=== PATIENT | male | born 1985 | race Caucasian/White ===

== ENCOUNTER 2024-02-20 10:12 | Emergency (ER) | payer BC, SELFPAY ==
[2024-02-20 10:34] VITALS: BP 154/80; PULSE 83; RESP 16; TEMP 36.8; O2SAT 97
--- NOTE | 2024-02-20 10:40 | ED_ITS ---
HPI - URI/Sore Throat General Chief Complaint: Upper Respiratory Infection Stated Complaint: congestion/cough Time Seen by Provider: 02/20/24 10:40 Source: patient Mode of arrival: ambulatory Limitations: no limitations History of Present Illness HPI Narrative: 38-year-old male presents with complaint of nasal and chest congestion for the past 2-3 weeks. worsening of symptoms with body aches, chills, fever the past 2-3 days. Coughing for approximately 1 week. Started DayQuil NyQuil recently due to worsening of symptoms. Does not take any daily allergy medications. Denies nausea vomiting diarrhea. Patient's positive for influenza A. All systems reviewed and negative except as noted above. Related Data Home Medications ?Medication ?Instructions ?Recorded ?Confirmed ?Last Taken ?Type cholecalciferol (vitamin D3) 25 25 mcg PO DAILY 09/08/22 11/28/23 Unknown History mcg (1,000 unit) capsule testosterone cypionate 200 mg/mL 80 mg IM .Mon & Thurs 11/21/22 11/28/23 Unknown History intramuscular oil mecobalamin (vitamin B12) 1,000 1,000 mcg PO DAILY 02/20/24 Unknown History mcg chewable tablet semaglutide 0.25 mg or 0.5 mg (2 0.25 mg subcut ONCE 02/20/24 02/20/24 Unknown History mg/3 mL) subcutaneous pen injector (Ozempic) Allergies Allergy/AdvReac Type Severity Reaction Status Date / Time No Known Allergies Allergy Verified 02/20/24 10:33 Review of Systems Review of Systems: CONSTITUTIONAL: reports fatigue, fever, chills, or sweats. EYES: Denies visual changes, redness, or discharge. ENT: Reports rhinorrhea, congestion, sinus congestion, sinus pressure. Denies sore throat, or otalgia. CARDIOVASCULAR: Denies chest pain, palpitations, or edema. RESPIRATORY: reports cough, chest congestion. Denies dyspnea. GASTROINTESTINAL: Denies abdominal pain, nausea, vomiting, or diarrhea. GENITOURINARY: Denies dysuria or hematuria. SKIN: Denies rash or itching. MUSCULOSKELETAL: Denies back pain, joint pain. Reports myalgia. NEUROLOGIC: Denies headache, numbness, or weakness. PSYCHIATRIC: Denies anxiety or depression. All other systems reviewed are negative, except as documented in HPI. 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 Father Hypertension Diabetes mellitus Grandparent Diabetes mellitus Social History Social History Smoking status: Never smoker Smokeless tobacco user: chewing tobacco Drinks per week: 20 Alcohol use details: beer Substance use: never Substance use type: does not use Lack of Transportation: No Lack of Food: Never True Current Housing: I Have Housing Concerned About Future Housing: No Difficulty Paying Gas/Electric Bills: No Difficulty Paying for Meds: No Currently Unemployed: No Education: Associate Degree Difficulty w/ Childcare or Family Care: No Living arrangements: with family Occupation/Education: occupation Gender identity (if verbalized by the patient): Male Comments At time of signature, agree with nursing past medical, surgical, social and family history. There is no relevant family history pertinent to the presenting complaint. Exam Narrative: GENERAL: This is a well-nourished, well-developed patient, in no apparent distress. HEAD: normocephalic, atraumatic. EYES: PERRL. Sclera clear/white. Vision is grossly intact. EARS: External ears normal, auditory canals clear and without drainage, TMs normal without perforation. Hearing grossly intact. NOSE: External nose normal with mild congestion, erythema and swelling to bilateral nares, purulent nasal drainage. Maxillary sinus tenderness on palpation bilaterally. THROAT: Mucous membranes moist, Erythematous with swelling. No exudates. Postnasal drainage noted. NECK: Neck supple, non-tender without lymphadenopathy, masses or thyromegaly. CARDIOVASCULAR: Regular rate and rhythm without murmurs, gallops, or rubs. RESPIRATORY: Course on expiration to lower lung de jesus otherwise clear. Breath sounds equal bilaterally. No wheezes, rales, or rhonchi. SKIN: warm, Dry, intact with no suspicious lesions or rash, good texture and turgor. NEURO: awake, alert, and oriented to person, place and time. There were no obvious focal neurologic abnormalities. EXTREMITIES: No joint tenderness, effusion, or edema noted. Course Course Level of Care: Express Care Visit Vital Signs Vital signs: Vital Signs Temperature 36.8 C 02/20/24 10:34 Pulse Rate 83 02/20/24 10:34 Respiratory Rate 16 02/20/24 10:34 Blood Pressure 154/80 H 02/20/24 10:34 Pulse Oximetry 97 02/20/24 10:34 Oxygen Delivery Room Air 02/20/24 10:34 Temperature 36.8 C 02/20/24 10:34 Pulse Rate 83 02/20/24 10:34 Respiratory Rate 16 02/20/24 10:34 Blood Pressure 154/80 H 02/20/24 10:34 Pulse Oximetry 97 02/20/24 10:34 Oxygen Delivery Room Air 02/20/24 10:34 Reviewed MDM - URI/Sore Throat MDM Narrative Medical decision making narrative: Patient is aware of diagnosis, understands and agrees to treatment plan. Anticipatory guidance given. Patient agrees to follow-up as directed and is aware of reasons to seek care at the emergency department. Portions of this record may have been created with voice recognition software negative influenza and COVID test. Will treat patient for bacterial sinusitis due to duration of symptoms and exam findings. Differential Diagnosis Differential diagnosis: Likely upper respiratory infection, sinusitis, viral infection, influenza and pharyngitis Discharge Plan Discharge Clinical Impression: Acute bacterial sinusitis Patient Disposition: Home, Self-Care Condition: Stable Instructions: Antibiotic Form, Sinusitis (ED) Additional Instructions: your COVID and influenza test was negative today. Take medications as prescribed. Take Tylenol or ibuprofen every 6-8 hours as needed for pain and fever. Drink at least 64 oz of water a day. Place cool mist humidifier in bedroom where you sleep. Follow-up with your primary care physician if symptoms are not improving. Patient Language: Hebrew Prescriptions: New doxycycline hyclate 100 mg capsule 100 mg PO BID 7 Days Qty: 14 0RF benzonatate 200 mg capsule 200 mg PO TID PRN (Reason: cough) Qty: 20 0RF prednisone 20 mg tablet 40 mg PO DAILY 5 Days Qty: 10 0RF fluticasone propionate [Flonase Allergy Relief] 50 mcg/actuation spray,suspension 1 spray intranasal BID Qty: 16 0RF Rx Instructions: administer into each nostril loratadine [Allerclear] 10 mg tablet 10 mg PO DAILY Qty: 30 0RF No Action Ozempic 0.25 mg or 0.5 mg (2 mg/3 mL) pen injector 0.25 mg subcut ONCE mecobalamin (vitamin B12) 1,000 mcg tablet,chewable 1,000 mcg PO DAILY cholecalciferol (vitamin D3) 25 mcg (1,000 unit) capsule 25 mcg PO DAILY testosterone cypionate 200 mg/mL oil 80 mg IM .Mon & Thurs olmesartan [Benicar] 20 mg tablet 20 mg PO DAILY Qty: 90 0RF levothyroxine 112 mcg tablet 112 mcg PO DAILY Qty: 90 0RF Follow-up/Referrals: Marcella Carranza PA-C [Primary Care Provider] - Time of Disposition: 11:00
[2024-02-20 11:05] LABS: EDINFLUASCREEN Negative (Negative); EDINFLUBSCREEN Negative (Negative)
--- OUTSIDE RECORDS SUMMARY | 2024-02-27 20:31 | XMS_ITS | Encounter Summary ---
Author Organization [facility] Address [address] [place] [address] Care Team Providers Care Digital Production Artist Name Role Phone Saurabh Marquis MD Primary Care Provider [phone] Encounter Details Date Type Department Care Team (Latest Contact Info) Description 07/17/2014 Hospital Outpatient Visit [facility] - Orthopedics [address] [place] [address] Miah Dumont MD [address] [place] [address] Discharge Disposition: Home or Self Care Social History Tobacco Use Types Packs/Day Years Used Date Smoking Tobacco: Never Assessed Sex and Gender Information Value Date Recorded Sex Assigned at Not on file Gender Identity Not on file Sexual Orientation Not on file documented as of this encounter Plan of Treatment Not on file documented as of this encounter Visit Diagnoses Not on filedocumented in this encounter Care Teams Digital Production Artist Relationship Specialty Start Date End Date Saurabh Marquis MD [address] [place] [id number] PCP - General Internal Medicine 06/05/14 documented as of this encounter
--- OUTSIDE RECORDS SUMMARY | 2024-02-27 20:31 | XMS_ITS | Clinical Summary ---
Author Organization [facility] Address [address] [facility] [place] [address] Care Team Providers Care Hardware Trainer Name Role Phone Saurabh Marquis MD Primary Care Provider [phone] [facility],non-owned Affiliates and Associated Physician Practices is amultiple site organization consisting of ambulatory clinics and hospital sitesin [place], [place], [place] and [place]. This disclosure is being madepursuant to the Care Everywhere program and may not contain all information available regarding this patient. Last updated 17.[facility] Allergies No known active allergies Medications * Be aware that medications may not be up to date on this document. Alwaysverify current medications with the patient. Medication Sig Dispensed Refills Start Date End Date Status ibuprofen (MOTRIN) 200 MG tablet Take by mouth every 6 hours as needed for Pain. Active benzonatate (TESSALON) 200 MG capsuleIndications:Acu te nasopharyngitis (common cold) Take 1 capsule by mouth 3 times daily as needed for Cough 30 capsule 01/15/2017 Active methylPREDNISolone (MEDROL DOSEPAK) 4 MG tabletIndications:Acut e nasopharyngitis (common cold) Take by mouth as directed Use dose pack of 4mg tabs, start 24 mg/day, taper by 4mg/day over 6 days per pkg instructions. Take with food. 1 Each 01/15/2017 Active Active Problems No known active problems Family History Medical History Relation Name Comments Diabetes - Type 2 Father Diabetes - Type 2 Paternal Grandmother Relation Name Status Comments Father Paternal Grandmother Social History Tobacco Use Types Packs/Day Years Used Date Smoking Tobacco: Never Smokeless Tobacco: Current Chew Tobacco Cessation:Ready to Q uit: No; Counseling Given: Yes Sex and Gender Information Value Date Recorded Sex Assigned at Not on file Gender Identity Not on file Sexual Orientation Not on file Last Filed Vital Signs Vital Sign Reading Time Taken Comments Blood Pressure 120/86 01/15/2017 11:41 AM CLINICAL SCIENCES PROFESSOR Pulse 58 01/15/2017 11:41 AM CLINICAL SCIENCES PROFESSOR Temperature 36.9 ??C (98.5 ??F) 01/15/2017 11:[address] Respiratory Rate 16 01/15/2017 11:41 AM CLINICAL SCIENCES PROFESSOR Oxygen Saturation 97% 01/15/2017 11:41 AM CLINICAL SCIENCES PROFESSOR Inhaled Oxygen Concentration - - Weight 113.4 kg (250 lb) 01/15/2017 11:41 AM CLINICAL SCIENCES PROFESSOR Height 175.3 cm (5' 9 ) 01/15/2017 11:41 AM CLINICAL SCIENCES PROFESSOR Body Mass Index 36.92 01/15/2017 11:41 AM CLINICAL SCIENCES PROFESSOR Plan of Treatment Health Maintenance Due Date Last Done Comments LIPID TESTING 1983 HIV SCREENING 11/17/1998 HEPATITIS C SCREENING 11/13/2001 DTAP/TDAP/TD VACCINES (1 - Tdap) 11/17/2002 HEPATITIS B VACCINE (1 of 3 - 19+ 3-dose series) 11/17/2002 DEPRESSION SCREENING 02/27/2023 COVID-19 VACCINE (1 - 2023-2 5 season) 2023 INFLUENZA VACCINE (#1) 2023 ZOSTER VACCINE (1 of 2) 11/17/2033 HIB VACCINE Aged Out No longer eligi ble based on patient's age to complete this topic HPV VACCINE Aged Out No longer eligi ble based on patient's age to complete this topic MENINGOCOCCAL VACCINE Aged Out No ursula niall eligible based on patient's age to complete this topic PNEUMOCOCCAL VACCINE Aged Out No long er eligible based on patient's age to complete this topic Care Teams Hardware Trainer Relationship Specialty Start Date End Date Saurabh Marquis MD [address] [place] [id number] PCP - General Internal Medicine 06/05/14
--- OUTSIDE RECORDS SUMMARY | 2024-02-27 20:31 | XMS_ITS | Encounter Summary ---
Author Organization [facility] Address [address] [place] [address] Care Team Providers Care Coffee Bar Attendant Name Role Phone Saurabh Marquis MD Primary Care Provider [phone] Reason for Visit * Auth/Cert - Closed Specialty Diagnoses / Procedures Referred By Contac t Referred To Contact Procedures DEBRIDEMENT AND IRRIGATION WOUND GRAFT SKIN FULL THICKNESS Referral ID Status Reason Start Date Expiration Date Visits Re quested Visits Authorized [id number] Closed 1 1 Encounter Details Date Type Department Care Team (Late st Contact Info) Description 06/09/2014 8:37 AM CDT - 06/09/2014 10:37 AM CDT Surgery [facility] PERIOPERATIVE [address] [place] [address] Miah Dumont MD [address] [place] [address] THUMB DEBRIDEMENT AND Surgery Details Date/Time Status Location OR Service Patient Class Case Class Case Type Trauma Case? 06/09/2014 8:37 AM Posted [facility] MAIN OR OR 05 Orthopedics Surgery Day Care Elective > 5 days Panel 1 Procedure LRB Anes Op Region Wound Class Comments THUMB DEBRIDEMENT AND Right General Hand Clean GRAFT SKIN FULL THICKNESS FROM FOREARM Right Clean Surgeon Surgeon Role Service Panel Miah Dumont MD Primary Orthopedics 1 Special Needs NEEDS HAND TABLE/ NO DERMATOME NEEDED PER OFFICE ([facility]I)/ ANY QUESTIONS CONTACT OFFICE ([facility] # [phone]) documented in this encounter Social History Tobacco Use Types Packs/Day Years Used Date Smoking Tobacco: Never Smokeless Tobacco: Current Chew Tobacco Cessation:Ready to Q uit: No; Counseling Given: Yes Sex and Gender Information Value Date Recorded Sex Assigned at Not on file Gender Identity Not on file Sexual Orientation Not on file documented as of this encounter Last Filed Vital Signs Vital Sign Reading Time Taken Comments Blood Pressure 128/80 06/09/2014 1:35 PM CDT Pulse 52 06/09/2014 1:35 PM CDT Temperature 36.5 ??C (97.7 ??F) 06/09/2014 1:35 PM CD T Respiratory Rate 16 06/09/2014 1:35 PM CDT Oxygen Saturation 99% 06/09/2014 1:35 PM CDT Inhaled Oxygen Concentration - - Weight 106.6 kg (235 lb) 06/09/2014 7:09 AM CDT Height 175.3 cm (5' 9.02 ) 06/09/2014 7:09 AM CD T Body Mass Index 34.69 06/09/2014 7:09 AM CDT documented in this encounter Discharge Summaries * Bettye Pabon MD - 06/09/2014 11:13 AM CDT Physician Discharge Summary Patient Name: Breanna Escamilla Date of : 1985 Admit date: 06/09/2014 Discharge date: 06/09/2014 Admitting Physician: Miah Dumont MD Attending Physician: Miah Dumont MD Admission Diagnosis: Right thumb crush injury Discharge Diagnoses same Past Medical History Past Medical History Diagnosis Date ??? Concussion 1996 Diagnostic Studies none Procedures 06/09/2014 right thumb I&D, full thickness skin graft Consults none Hospital Course Breanna Escamilla is a 28 y.o. male who is s/p crush injury to his right thumb in March 2014. He subsequently developed distal fingertip necrosis. He underwent fingertip irrigation and debridement and full thickness skin graft from his forearm. He tolerated the procedure well. He was placed into asoft dressing. He will follow up in clinic in 2 weeks. He does not need to change his dressing before then. 5lb weight limit. Condition at discharge: good Disposition: home Discharge Medications: Discharge Medication List START taking these medications Instructions Authorizing Provider hydrocodone-acetaminophen 5-325 MG tablet Commonly known as: NORCO Take 1 Tab by mouth every 6 hours as needed for Pain. Bettye Pabon CONTINUE taking these medications Instructions Authorizing Provider ibuprofen 200 MG tablet Commonly known as: MOTRIN Take by mouth every 6 hours as needed for Pain. Patient Instructions Discharge Procedure Orders Why you were hospitalized Order Specific Question Answer Comments Your discharge diagnosis is Crush injury to thumb [[id number]] No special diet needed Resume your normal home diet as tolerated. Special activity instructions No vigorous sports or physical activity until seen in clinic. NWB RUE Special incision care Keep both dressings clean and dry Do not change dressings until seen and evaluated in clinic Follow up with provider Order Specific Question Answer Comments Follow Up Instructions: follow up in 2 weeks documented in this encounter Medications at Time of Discharge Medication Sig Dispensed Refills Start Date End Date ibuprofen (MOTRIN) 200 MG tablet Take by mouth every 6 hours as needed for Pain. hydrocodone-acetaminophen (NORCO) 5-325 MG tablet Take 1 Tab by mouth every 6 hours as needed for Pain. 30 Tab 0 06/09/2014 01/15/2017 documented as of this encounter H&P Notes * Miah Dumont MD - 06/09/2014 6:43 AM CDT Ortho Hand PRE-OPERATIVE H&P Breanna Escamilla [id number] 06/09/2014 6:43 AM CHIEF COMPLAINT/PRESENT ILLNESS: Right thumb crush injury This is a 28-year-old male s/p right thumb crush injury with thumb tip repair in the ED after injury on 04/01/2014. Since that time, he had to remain outside in the cold for 40 minutes while at work and believes the necrosis got worse. He presents today to undergo R thumb I&D and full thickness skin graft. MEDICATIONS: No current facility-administered medications for this encounter. ROS: Negative except for as listed above. ALLERGIES: Allergies as of 06/05/2014 ??? (Not on File) PREVIOUS SERIOUS ILLNESS/SURGERY: No past surgical history on file. PREVIOUS ILLNESS: No past medical history on file. PERTINENT FAMILY/SOCIAL HISTORY: History Social History ??? Marital Status: Spouse Name: N/A Number of Children: N/A ??? Years of Education: N/A Social History Main Topics ??? Smoking status: Not on file ??? Smokeless tobacco: Not on file ??? Alcohol Use: Not on file ??? Drug Use: Not on file ??? Sexual Activity: Not on file Other Topics Concern ??? Not on file Social History Narrative VITALS: Vitals: EXAM: General: healthy, alert and no distress Lungs:breath sounds symmetrical without rales or wheezes Heart:regular rate and rhythm, normal S1 and S2, no murmurs Abdomen:Soft without mass or tenderness Skin:no rashes Right Upper Extremity: good demarcation of the area with necrotic tissue and with some granulation tissue growing underneath especially on the nail bed area. There are no signs of active infection and no fluid secretion on the region. LAB/RADIOGRAPHS: previously reviewed. ASSESSMENT: Right thumb crush injury with fingertip necrosis. PLAN: 1. Plan for OR today for right thumb I&D and full thickness skin graft 2. NPO for OR 3. Consent signed 4. Site marked 5. Will proceed as planned. ORTHOPAEDIC HAND SURGERY ATTENDING NOTE I have personally seen and evaluated the above patient with the resident. I have discussed the results of the physical exam and all studies with the patient and family. I developed the above plan of care and discussed it with the patient. I have revised the above note and agree with the resident's assessment and plan of care. HISTORY: Breanna Escamilla is a 28 y.o. male who presents with Right thumb crush injury . EXAM: -General appearance: No apparent distress., A&Ox3, cooperative, no distress -Right upper extremity: Sensation: Decreased on necrotic area. Brisk capillary refill (<2 seconds). Thumb tip necrosis with no signs of active infection IMAGING: none today ASSESSMENT: No diagnosis found. PLAN: 1. For debridement and FTSG today 2. Questions answered documented in this encounter OR Notes * Operative - Miah Dumont MD - 06/09/2014 7:36 PM CDT [facility] - [place] [address] Operative Report PATIENT NAME: BREANNA ESCAMILLA MR#: [id number] DATE OF : 1985 CSN: [id number] DATE OF ADMISSION: 06/09/2014 ROOM#: [facility] INTRAOP DATE OF OPERATION: 06/09/2014 PREOPERATIVE DIAGNOSIS: Right thumb crush injury with skin necrosis. POSTOPERATIVE DIAGNOSIS: Right thumb crush injury with skin necrosis. OPERATIVE PROCEDURE: Right thumb irrigation and debridement and full-thickness skin graft from right forearm measuring 1.2 cm. FLOODPLAIN MANAGER: Dr. Bettye Pabon. INDICATIONS: This is a 28 years old male that had a crush injury to his right thumb. Patient developed some skin necrosis that he waited for demarcation. Surgery was indicated for removal of necrotic tissue and full-thickness skin graft. DETAILS OF THE PROCEDURE: Risks and benefits of the surgery were explained to the patient, and a consent was obtained. After application of anesthesia, the patient was placed supine on the table. The right upper extremity was prepped and draped in the usual sterile fashion. We started the procedure by removing the necrotic tissue on the thumb. We could see some granulation tissue especially over the nail bed. The germinal matrix was still present but with some areas of scar tissue. The nail fold was also present, and the sterile matrix was damaged on its distal part. Skin loss was present on the radial side of the thumb but with no bone exposure. Skin graft measuring 1.2 cm was then harvested from the medial part of the right forearm. An elliptical incision was used to harvest the skin graft, and we were able to close the donor area primarily with a 4-0 Vicryl and subcuticular 4-0 Monocryl suture. A soft dressing was applied on the donor area, and full-thickness skin graft was inset in the receptor area and held in place with a running 5-0 chromic suture. Aluminum foil was used to keep the nail fold opened, and this was sutured in place with chromic as well. Finally, a soft dressing was applied on the thumb. The patient tolerated the procedure well and must return for followup in the clinic. NAME: BREANNA ESCAMILLA DICTATOR: CHINO CASTILLO MD DICTATED FOR: PATRICE/SABRINA JOB ID: [id number] Operative Report * Brief Op Note - Bettye Pabon MD - 06/09/2014 11:09 AM CDT NAME: Breanna Escamilla : 1985 DATE OF OPERATION: 06/09/2014 ATTENDING SURGEON: Miah Dumont MD PCP: Saurabh Marquis Brief Op Note Surgeon: Dr. Miah Dumont Supervisor Stage Carpentry: Dr. Bettye Pabon Anesthesia: general Pre-operative Diagnosis: Right thumb crush injury Post-operative Diagnosis: same Procedure: Right thumb debridement, full thickness skin graft EBL: minimal Complications: none Specimen: none documented in this encounter Plan of Treatment Not on file documented as of this encounter Procedures Procedure Name Priority Date/Time Associated Diagnosis Comments CARDIAC RHYTHM STRIP ORDER 06/12/2014 2:57 AM CDT GRAFT SKIN FULL THICKNESS 06/09/2014 9:25 AM CDT Special Needs NEEDS HAND TABLE/ NO DERMATOME NEEDED PER OFFICE ([facility])/ ANY QUESTIONS CONTACT OFFICE ([facility] # [phone]) IRRIGATION/DEBRID EMENT WOUND/TISSUE 06/09/2014 9:25 AM CDT Special Needs NEEDS HAND TABLE/ NO DERMATOME NEEDED PER OFFICE ([facility])/ ANY QUESTIONS CONTACT OFFICE ([facility] # [phone]) documented in this encounter Results * CARDIAC RHYTHM STRIP ORDER (06/12/2014 2:57 AM CDT) Narrative 06/12/2014 2:57 AM CDT Ordered by an unspecified provider. Scanned Document CARDIAC SERVICES ORD ERABLES documented in this encounter Visit Diagnoses Not on filedocumented in this encounter Administered Medications Inactive Administered Medications - up to 3 most recent administrations Medication Order MAR Action Action Date Dose Rate Site 0.9% nacl irrigation solution PRN, Starting on Mon06/09/14 at 1055, Until Mon06/09/14 at 1104, Intra-op $ Given 06/09/2014 10:55 AM CDT 500 mL bupivacaine PF (MARCAINE PF) 0.25 % injection PRN, Starting on Mon06/09/14 at 1055, Until Mon06/09/14 at 1104, Intra-op $ Given 06/09/2014 10:55 AM CDT 5 mL bupivacaine PF (MARCAINE PF) 0.5 % injection PRN, Starting on Mon06/09/14 at 1055, Until Mon06/09/14 at 1104, Intra-op $ Given 06/09/2014 10:55 AM CDT 5 mL fentaNYL (SUBLIMAZE) injection 50 mcg 50 mcg, Intravenous, EVERY 3 MIN PRN, Mild Pain, 4 doses, Starting on Mon06/09/14 at 1110, Until Mon06/09/14 at 1454, Maximum total of 4 doses. If patient reaches max total dose, please consult anesthesiologist prior to further administration of pain meds. Hold pain meds if there are signs of hypoventilation., PACU $ Given 06/09/2014 11:40 AM CDT 50 mcg $ Given 06/09/2014 11:35 AM CDT 50 mcg $ Given 06/09/2014 11:30 AM CDT 50 mcg hydrocodone-acetaminophen (NORCO) 5-325 MG tablet 1 Tab 1 tablet, Oral, POST-OP ONCE, 1 dose, On Mon06/09/14 at 1241 $ Given 06/09/2014 12:41 PM CDT 1 tablet lactated ringers infusion at 20 mL/hr, Intravenous, PRE-OP CONTINUOUS, Starting on Mon06/09/14 at 0700, Until Mon06/09/14 at 1454, Pre-op $ New Bag/Syringe 06/09/2014 7:20 AM CDT 20 mL/hr lactated ringers infusion at 125 mL/hr, Intravenous, CONTINUOUS, Starting on Mon06/09/14 at 1115, Until Mon06/09/14 at 1454, PACU $ New Bag/Syringe 06/09/2014 12:42 PM CDT 20 mL/hr lidocaine (XYLOCAINE MPF) 1 % injection Infiltration, PRE-OP MULTIPLE, 3 doses, Starting on Mon06/09/14 at 0652, Until Mon06/09/14 at 1454, May be used (0.2 ml locally to anesthetize prior to insertion if patient has NKA to Lidocaine)., Pre-op $ Given 06/09/2014 7:20 AM CDT 0.1 mL documented in this encounter Active and Recently Administered Medications Times are shown in CDT. Scheduled Medication Order 06/07/2014 06/08/2014 06/09/2014 ceFAZolin (ANCEF) IVPB 2 g (CANCELED) 2 g, at 100 mL/hr, Intravenous, PRE-OP MULTIPLE, Starting on Mon06/09/14 at 0652, Until Mon06/09/14 at 1454, Administer 30 minutes prior to surgical incision. May repeat dose in 3 hours if surgical incision is not yet closed., Pre-op 0938 ($ Given - Prov ider: Christofer Haas, CALL OR CONTACT CENTRE COACH-AUTOMATIC MAINTAINER) hydrocodone-acetaminophen (NORCO) 5-325 MG tablet 1 Tab (COMPLETED) 1 tablet, Oral, POST-OP ONCE, 1 dose, On Mon06/09/14 at 1241 1241 ($ Given - Prov ider: Deena Penaloza, TOMI) lidocaine (XYLOCAINE MPF) 1 % injection (CANCELED) Infiltration, PRE-OP MULTIPLE, 3 doses, Starting on Mon06/09/14 at 0652, Until Mon06/09/14 at 1454, May be used (0.2 ml locally to anesthetize prior to insertion if patient has NKA to Lidocaine)., Pre-op 0720 ($ Given - Prov ider: Deena Penaloza, TOMI) Continuous Medication Order 06/07/2014 06/08/2014 06/09/2014 lactated ringers infusion (CANCELED) at 20 mL/hr, Intravenous, PRE-OP CONTINUOUS, Starting on Mon06/09/14 at 0700, Until Mon06/09/14 at 1454, Pre-op 0720 ($ New Bag/Syri nge - Provider: Deena Penaloza, TOMI)1105 (Anesthesia Volume Adjustment - Provider: Yolanda Heller, KARLA-AUTOMATIC MAINTAINER)1335 (Stopped - Provider: Deena Penaloza, TOMI) lactated ringers infusion (CANCELED) at 125 mL/hr, Intravenous, CONTINUOUS, Starting on Mon06/09/14 at 1115, Until Mon06/09/14 at 1454, PACU 1242 ($ New Bag/Syri nge - Provider: Deena Penaloza, TOMI) PRN Medication Order 06/07/2014 06/08/2014 06/09/2014 0.9% nacl irrigation solution (CANCELED) PRN, Starting on Mon06/09/14 at 1055, Until Mon06/09/14 at 1104, Intra-op 1055 ($ Given - Prov ider: Miah Dumont MD) bupivacaine PF (MARCAINE PF) 0.25 % injection (CANCELED) PRN, Starting on Mon06/09/14 at 1055, Until Mon06/09/14 at 1104, Intra-op 1055 ($ Given - Prov ider: Miah Dumont MD) bupivacaine PF (MARCAINE PF) 0.5 % injection (CANCELED) PRN, Starting on Mon06/09/14 at 1055, Until Mon06/09/14 at 1104, Intra-op 1055 ($ Given - Prov ider: Miah Dumont MD) fentaNYL (SUBLIMAZE) injection 50 mcg (CANCELED) 50 mcg, Intravenous, EVERY 3 MIN PRN, Mild Pain, 4 doses, Starting on Mon06/09/14 at 1110, Until Mon06/09/14 at 1454, Maximum total of 4 doses. If patient reaches max total dose, please consult anesthesiologist prior to further administration of pain meds. Hold pain meds if there are signs of hypoventilation., PACU 1130 ($ Given - Prov ider: Madhavi Pickett RN)1135 ($ Given - Provider: aMdhavi Pickett RN)1140 ($ Given - Provider: Madhavi Pickett RN) documented in this encounter Care Teams Coffee Bar Attendant Relationship Specialty Start Date End Date Saurabh Marquis MD [address] [place] [address] PCP - General Internal Medicine 06/05/14 documented as of this encounter
--- OUTSIDE RECORDS SUMMARY | 2024-02-27 20:31 | XMS_ITS | Encounter Summary ---
Author Organization [facility] Address [address] [place] [address] Care Team Providers Care Associate Pastor Name Role Phone Saurabh Marquis MD Primary Care Provider [phone] Encounter Details Date Type Department Care Team (Latest Contact Info) Description 04/10/2014 Hospital Outpatient Visit [facility] - Orthopedics [address] [facility] [place] [address] Miah Dumont MD [address] [place] [address] Discharge Disposition: Home or Self Care Social [...] on filedocumented in this encounter Care Teams Associate Pastor Relationship Specialty Start Date End Date Saurabh Marquis MD [address] [place] [address] PCP - General Internal Medicine 06/05/14 documented as of this encounter
--- OUTSIDE RECORDS SUMMARY | 2024-02-27 20:31 | XMS_ITS | Encounter Summary ---
Author Organization [facility] Address [address] [place] [address] Care Team Providers Care Panel Gluer Name Role Phone Saurabh Marquis MD Primary Care Provider [phone] Encounter Details Date Type Department Care Team (Latest Contact Info) Description 06/05/2014 Hospital Outpatient Visit [facility] - Orthopedics [address] [facility] [place] [address] Miah Dumont MD [address] [place] [address] Discharge Disposition: Home or Self Care Social [...] on filedocumented in this encounter Care Teams Panel Gluer Relationship Specialty Start Date End Date Saurabh Marquis MD [address] [place] [address] PCP - General Internal Medicine 06/05/14 documented as of this encounter
--- OUTSIDE RECORDS SUMMARY | 2024-02-27 20:31 | XMS_ITS | Referral Summary ---
Author Organization [facility] Address [address] [place] [address] Care Team Providers Care Maintenance Worker Municipal Name Role Phone Saurabh Marquis MD Primary Care Provider [phone] [facility],non-owned Affiliates and Associated Physician Practices is amultiple site organization consisting of ambulatory clinics and hospital sitesin [place], [place], [place] and [place]. This disclosure is being madepursuant to the Care Everywhere program and may not contain all information available regarding this patient. Last updated 17.[facility] Allergies No known active allergies Medications * [...] Active Active Problems No known active problems Social History Tobacco Use Types Packs/Day Years [...] Comments Blood Pressure 120/86 01/15/2017 11:41 AM AUTHORIZATION REP Pulse 58 01/15/2017 11:41 AM AUTHORIZATION REP Temperature 36.9 ??C (98.5 ??F) 01/15/2017 11:[address] Respiratory Rate 16 01/15/2017 11:41 AM AUTHORIZATION REP Oxygen Saturation 97% 01/15/2017 11:41 AM AUTHORIZATION REP Inhaled Oxygen Concentration - - Weight 113.4 kg (250 lb) 01/15/2017 11:41 AM AUTHORIZATION REP Height 175.3 cm (5' 9 ) 01/15/2017 11:41 AM AUTHORIZATION REP Body Mass Index 36.92 01/15/2017 11:41 AM AUTHORIZATION REP Plan of Treatment Not on file Care Teams Maintenance Worker Municipal Relationship Specialty Start Date End Date Saurabh Marquis MD [facility] [place] [address] PCP - General Internal Medicine 06/05/14
--- OUTSIDE RECORDS SUMMARY | 2024-02-27 20:31 | XMS_ITS | Patient Health Summary ---
Author Organization [facility] Address [address] [place] [address] Care Team Providers Care Chemical Engraver Name Role Phone Saurabh Marquis MD Primary Care Provider [phone] Note from [facility],non-owned Affiliates and Associated Physician Practices is amultiple site organization consisting of ambulatory clinics and hospital sitesin [place], [place], [place] and [place]. This disclosure is being madepursuant to the Care Everywhere program and may not contain all information available regarding this patient. Last updated 17.[facility] Allergies No known active allergies Medications * Be aware that medications may not be up to date on this document. Alwaysverify current medications with the patient. * ibuprofen (MOTRIN) 200 MG tablet Take by mouth every 6 hours as needed for Pain. * benzonatate (TESSALON) 200 MG capsule(Started 01/15/2017) Take 1 capsule by mouth 3 times daily as needed for Cough * methylPREDNISolone (MEDROL DOSEPAK) 4 MG tablet(Started 01/15/2017) Take by mouth as directed Use dose pack of 4mg tabs, start 24 mg/day, taper by 4mg/day over 6 days per pkg instructions. Take with food. Active Problems No known active problems Social [...] Comments Blood Pressure 120/86 01/15/2017 11:41 AM HOT STRIP FINISHER Pulse 58 01/15/2017 11:41 AM HOT STRIP FINISHER Temperature 36.9 ??C (98.5 ??F) 01/15/2017 11:[address] Respiratory Rate 16 01/15/2017 11:41 AM HOT STRIP FINISHER Oxygen Saturation 97% 01/15/2017 11:41 AM HOT STRIP FINISHER Inhaled Oxygen Concentration - - Weight 113.4 kg (250 lb) 01/15/2017 11:41 AM HOT STRIP FINISHER Height 175.3 cm (5' 9 ) 01/15/2017 11:41 AM HOT STRIP FINISHER Body Mass Index 36.92 01/15/2017 11:41 AM HOT STRIP FINISHER Procedures * CARDIAC RHYTHM STRIP ORDER(Performed 06/12/2014) * GRAFT SKIN FULL THICKNESS(Performed 06/09/2014) * IRRIGATION/DEBRIDEMENT WOUND/TISSUE(Performed 06/09/2014) * XR FINGERS RIGHT 2VW OR MORE(Performed 04/10/2014) * XR HAND RIGHT 3VW OR MORE(Performed 04/01/2014) * XR FINGERS RIGHT 2VW OR MORE(Performed 04/01/2014) Results * CARDIAC RHYTHM STRIP ORDER (06/12/2014 2:57 AM CDT) Narrative 06/12/2014 2:57 AM CDT Ordered by an unspecified provider. Scanned Document CARDIAC SERVICES ORD ERABLES * XR FINGERS RIGHT 2VW OR MORE (04/10/2014 9:30 AM HOT STRIP FINISHER) Only the most recent of2 resultswithin the time period is included. Anatomical Region Laterality Modality Upper Extremity, Wrist / Hand Ot her Impressions 04/10/2014 12:15 PM HOT STRIP FINISHER IMPRESSION: Fracture of the distal first phalanx in anatomic alignment. Dictated by Mana Gregory MD This report was approved ??by Mana Gregory M.D. ?? on 04/10/2014 11:22 AM . I, Dr. FRANCISCO RESTREPO MD have personally reviewed and interpreted this examination/study. This report was electronically signed by FRANCISCO RESTREPO MD ??on 04/10/2014 12:15 PM . Narrative 04/10/2014 12:15 PM HOT STRIP FINISHER EXAMINATION: XR FINGER RIGHT 2+ VW DATE: ?? 04/10/2014 HISTORY: finger fx COMPARISON: 04/01/2014. FINDINGS: There is a comminuted fracture of the first distal phalanx in anatomic alignment. The visualized joint spaces are normal. Soft tissue swelling persists. Tiny ossific densities in the dorsal soft tissues at the fracture site may represent fracture fragments/foreign bodies. Procedure Note Francisco Restrepo MD - 05/27/2017 EXAMINATION: XR FINGER RIGHT 2+ VW DATE: 04/10/2014 HISTORY: finger fx COMPARISON: 04/01/2014. FINDINGS: There is a comminuted fracture of the first distal phalanx in anatomicalignment. The visualized joint spaces are normal. Soft tissue swellingpersists. Tiny ossific densities in the dorsal soft tissues at thefracture site may represent fracture fragments/foreign bodies. IMPRESSION IMPRESSION: Fracture of the distal first phalanx in anatomic alignment. Dictated by Mana Gregory MD This report was approved by Mana Gregory M.D. on 04/10/2014 11:22 AM . IDr. FRANCISCO MD have personally reviewed and interpreted thisexamination/study. This report was electronically signed by FRANCISCO RESTREPO MD on 04/10/201412:15 PM . Miah Dumont MD DIAGNOSTIC IMAGING O RDERABLES * XR HAND RIGHT 3VW OR MORE (04/01/2014 10:47 PM HOT STRIP FINISHER) Anatomical Region Laterality Modality Wrist / Hand Other Impressions 04/02/2014 3:45 PM HOT STRIP FINISHER Impression: Comminuted, displaced, open first distal phalanx fracture, now closed and improved in alignment. This report has been dictated by Crystal Cobb M.D. (Resident). Dr. BETSY Valentine M.D. have personally reviewed and interpreted this examination/study. This report was electronically signed by BETSY YEAGER M.D. ??on 04/02/2014 3:45 PM . Narrative 04/02/2014 3:45 PM HOT STRIP FINISHER Exam: ??Right hand, portable 3 views Date: 04/01/2014 at 10:36 PM History: 28-year-old male status post nailbed repair of the thumb. Status post incision and drainage and skin closure. Comparison: Right hand radiographs dated 04/01/2014 at 4:27 PM. Findings: The comminuted, displaced fracture at the distal end of the first distal phalanx is improved in alignment. Some of the fragments may have been resected. The previously-seen adjacent soft tissue defect has been repaired. Focal soft tissue swelling of the distal first digit persists. The first interphalangeal joint now appears well-aligned. The joint spaces are preserved. On the lateral view, a well- corticated ossific density is seen anterior to the fourth PIP joint. A cyst is seen in the scaphoid. Procedure Note Betsy Yeager MD - 05/27/2017 Exam: Right hand, portable 3 views Date: 04/01/2014 at 10:36 PM History: 28-year-old male status post nailbed repair of the thumb. Statuspost incision and drainage and skin closure. Comparison: Right hand radiographs dated 04/01/2014 at 4:27 PM. Findings: The comminuted, displaced fracture at the distal end of the first distalphalanx is improved in alignment. Some of the fragments may have beenresected. The previously-seen adjacent soft tissue defect has beenrepaired. Focal soft tissue swelling of the distal first digit persists. The first interphalangeal joint now appearswell- aligned. The joint spaces are preserved. On the lateral view, awell-corticated ossific density is seen anterior to the fourth PIP joint.A cyst is seen in the scaphoid. IMPRESSION Impression: Comminuted, displaced, open first distal phalanx fracture, now closed andimproved in alignment. This report has been dictated by Crystal Cobb M.D. (Resident). I, Dr. BETSY YEAGER M.D. have personally reviewed and interpreted thisexamination/study. This report was electronically signed by BETSY YEAGER M.D. on 04/02/20143:45 PM . Miah Dumont MD DIAGNOSTIC IMAGING O RDERABLES Care Teams Chemical Engraver Relationship Specialty Start Date End Date Saurabh Maruqis MD [address] [place] [address] PCP - General Internal Medicine 06/05/14
--- OUTSIDE RECORDS SUMMARY | 2024-02-27 20:31 | XMS_ITS | Encounter Summary ---
Author Organization [facility] Address [address] [place] [address] Care Team Providers Care Amusement Ride Operator Name Role Phone Saurabh Marquis MD Primary Care Provider [phone] Reason for Visit * Auth/Cert - Closed Specialty Diagnoses / Procedures Referred By Contac t Referred To Contact Procedures DEBRIDEMENT AND IRRIGATION WOUND GRAFT SKIN FULL THICKNESS Referral ID Status Reason Start Date Expiration Date Visits Re quested Visits Authorized [id number] Closed 1 1 Encounter Details Date Type Department Care Team (Latest Contact Info) Description 06/09/2014 6:22 AM CDT - 06/09/2014 1:52 PM CDT Hospital Encounter [facility] [address] [place] [address] Miah Dumont MD [address] [place] [address] Surgery General Discharge Disposition: Home or Self Care Social [...] discharge diagnosis is Crush injury to thumb [[id number]] No special diet needed Resume your normal [...] CDT Ortho Hand PRE-OPERATIVE H&P Breanna Escamilla [id number] 06/09/2014 6:43 AM CHIEF COMPLAINT/PRESENT ILLNESS: Right [...] Dumont MD - 06/09/2014 7:36 PM CDT [facility] [place] [id number] Operative Report PATIENT NAME: BREANNA ESCAMILLA MR#: [id number] DATE OF : 1985 CSN: [id number] DATE OF ADMISSION: 06/09/2014 ROOM#: [facility] DATE OF OPERATION: 06/09/2014 PREOPERATIVE DIAGNOSIS: Right thumb crush injury with skin necrosis. POSTOPERATIVE DIAGNOSIS: Right thumb crush injury with skin necrosis. OPERATIVE PROCEDURE: Right thumb irrigation and debridement and full-thickness skin graft from right forearm measuring 1.2 cm. MUFFLE WORKER: Dr. Bettye Pabon. INDICATIONS: This is a [...] CASTILLO MD DICTATED FOR: PATRICE/SABRINA JOB ID: [id number] Operative Report * Brief Op Note - Bettye Pabon MD - 06/09/2014 11:09 AM CDT NAME: Breanna Escamilla : 1985 DATE OF OPERATION: 06/09/2014 ATTENDING SURGEON: Miah Dumont MD PCP: Saurabh Marquis Brief Op Note Surgeon: Dr. Miah Dumont Shingle Shearing Machine Operator: Dr. Bettye Pabon Anesthesia: general Pre-operative Diagnosis: [...] (TAI)/ ANY QUESTIONS CONTACT OFFICE (TAI # [phone]) IRRIGATION/DEBRID EMENT WOUND/TISSUE 06/09/2014 9:25 AM CDT Special Needs NEEDS HAND TABLE/ NO DERMATOME NEEDED PER OFFICE (TAI)/ ANY QUESTIONS CONTACT OFFICE (TAI # [phone]) documented in this encounter Results * CARDIAC RHYTHM STRIP ORDER (06/12/2014 2:57 AM CDT) Narrative 06/12/2014 2:57 AM CDT Ordered by an unspecified provider. Scanned Document CARDIAC SERVICES ORD ERABLES documented in this encounter Visit Diagnoses Not on filedocumented in this encounter Administered Medications Inactive Administered Medications - up to 3 most recent administrations Medication Order MAR Action Action Date Dose Rate Site fentaNYL (SUBLIMAZE) injection 50 mcg 50 mcg, [...] CONTINUOUS, Starting on Mon06/09/14 at 0700, Until 4/13/15 at 1454, Pre-op $ New Bag/Syringe 06/09/2014 [...] ($ Given - Prov ider: Christofer Haas, CRM COORDINATOR-DIGITAL PHOTO PRINTER) hydrocodone-acetaminophen (NORCO) 5-325 MG tablet 1 Tab [...] ($ New Bag/Syri nge - Provider: Deena Penaloza RN)1105 (Anesthesia Volume Adjustment - Provider: Yolanda Heller APRN-DIGITAL PHOTO PRINTER)1335 (Stopped - Provider: Deena Penaloza, RN) lactated ringers infusion (CANCELED) at 125 mL/hr, Intravenous, CONTINUOUS, Starting on Mon06/09/14 at 1115, Until Mon06/09/14 at 1454, PACU 1242 ($ New Bag/Syri nge - Provider: Deena Penaloza RN) PRN Medication Order 06/07/2014 06/08/2014 06/09/2014 0.9% [...] Madhavi Pickett RN)1135 ($ Given - Provider: Adelita Piyush, RN)1140 ($ Given - Provider: Madhavi Pickett RN) documented in this encounter Care Teams Amusement Ride Operator Relationship Specialty Start Date End Date Saurabh Marquis MD [facility] [address] [address] PCP - General Internal Medicine 06/05/14 documented as of this encounter
--- OUTSIDE RECORDS SUMMARY | 2024-02-27 20:31 | XMS_ITS | Encounter Summary ---
Author Organization [facility] Address [address] [place] [address] Care Team Providers Care Neighborhood Worker Name Role Phone Saurabh Marquis MD Primary Care Provider [phone] Reason for Visit * Reason Comments Cough congestion, body ach es since last monday. Encounter Details Date Type Department Care Team (Late st Contact Info) Description 01/15/2017 11:40 AM INFECTIOUS DISEASE PHYSICIAN Office Visit [facility] [address] [address] Provider, [facility] Acute nasopharyngitis (common cold) (Primary Dx) Social History Tobacco Use Types Packs/Day Years Used Date Smoking Tobacco: Never Smokeless Tobacco: Current Chew Sex and Gender Information Value Date Recorded Sex Assigned at Not on file Gender Identity Not on file Sexual Orientation Not on file documented as of this encounter Last Filed Vital Signs Vital Sign Reading Time Taken Comments Blood Pressure 120/86 01/15/2017 11:41 AM INFECTIOUS DISEASE PHYSICIAN Pulse 58 01/15/2017 11:41 AM INFECTIOUS DISEASE PHYSICIAN Temperature 36.9 ??C (98.5 ??F) 01/15/2017 11:[address] Respiratory Rate 16 01/15/2017 11:41 AM INFECTIOUS DISEASE PHYSICIAN Oxygen Saturation 97% 01/15/2017 11:41 AM INFECTIOUS DISEASE PHYSICIAN Inhaled Oxygen Concentration - - Weight 113.4 kg (250 lb) 01/15/2017 11:41 AM INFECTIOUS DISEASE PHYSICIAN Height 175.3 cm (5' 9 ) 01/15/2017 11:41 AM INFECTIOUS DISEASE PHYSICIAN Body Mass Index 36.92 01/15/2017 11:41 AM INFECTIOUS DISEASE PHYSICIAN documented in this encounter Patient Instructions * Patient Instructions* Bruce BrewerKARLA-MEDICAL STAFF DIRECTOR - 01/15/2017 11:54 AM INFECTIOUS DISEASE PHYSICIAN Cold Symptoms ANIMAL TRAINER: Cold symptoms include sneezing, dry throat, a stuffy nose, headache, watery eyes, and a cough. Yourcough may be dry, or you may cough up mucus. You may also have muscle aches, joint pain, and tiredness. Rarely, you may have a fever. Cold symptoms occur from inflammation in your upper respiratory system caused by a virus. Most colds go away without treatment. Seek care immediately if: ?? You have increased tiredness and weakness. ?? You are unable to eat. ?? Your heart is beating much faster than usual for you. ?? You see white spots in the back of your throat and your neck is swollen and sore to the touch. ?? You see pinpoint or larger reddish-purple dots on your skin. Contact your healthcare provider if: ?? You have a fever higher than 102??F (38.9??C). ?? You have new or worsening shortness of breath. ?? You have thick nasal drainage for more than 2 days. ?? Your symptoms do not improve or get worse within 5 days. ?? You have questions or concerns about your condition or care. Treatment for cold symptoms may include NSAIDS to decrease muscle aches and fever. Cold medicines may also be given to decrease coughing, nasal stuffiness, sneezing, and a runny nose. Manage your cold symptoms: The following may help relieve cold symptoms, such as a dry throat and congestion: ?? Gargle with mouthwash or warm salt water as directed. ?? Suck on throat lozenges or hard candy. ?? Use a cold or warm vaporizer or humidifier to ease your breathing. ?? Rest for at least 2 days and then as needed to decrease tiredness and weakness. ?? Use petroleum based jelly around your nostrils to decrease irritation from blowing your nose. ?? Drink plenty of liquids. Liquids will help thin and loosen thick mucus so you can cough it up. Liquids will also keep you hydrated. Ask your healthcare provider which liquids are best for you and how much to drink each day. Prevent the spread of germs by washing your hands often. You can spread your cold germs to others for at least 3 days after your symptoms start. Do not share items, such as eating utensils. Cover your nose and mouth when you cough or sneeze using the crook of your elbow instead of your hands. Throwused tissues in the garbage. Do not smoke: Smoking may worsen your symptoms and increase the length of time you feel sick. Talk with your healthcare provider if you need help to stop smoking. Follow up with your healthcare provider as directed: Write down your questions so you remember to ask them during your visits. ?? 2016 [employer]. Information is for End User's use only and may not be sold, redistributed or otherwise used for commercial purposes. All illustrations and images included in CareNotes?? are the copyrighted property of [employer]. or [employer]. The above information is an braided band assembler only. It is not intended as medical advice for individual conditions or treatments. Talk to your doctor, nurse or pharmacist before following any medical regimen to see if it is safe and effective for you. CTIOUS DISEASE PHYSICIAN documented in this encounter Progress Notes * Bruce Brewer APRN-CNP - 01/15/2017 11:46 AM CST Subjective: Aramis Escamilla is a 31 y.o. male who presents to the clinic for Chief Complaint Patient presents with ??? Cough congestion, body aches since last monday. . His Primary Care Physician is Saurabh Marquis MD. He reports that he started with sore throat on Monday (6 days ago), and then Monday coughing started, with chest congestion. Has been taking mucinex day and night time, with mild relief, then Monday night pt started much worse, denies fever. Pt also has some mild sinus congestion. Denies facial pain, or dental pain. Pt states he still has senseof taste and smell. He is drinking plenty of fluids.. He have tried otc cold medicine. Past Medical History: Diagnosis Date ??? Concussion 1995 Family History Problem Relation Age of Onset ??? Diabetes - Type 2 Father ??? Diabetes - Type 2 Paternal Grandmother Current Outpatient Prescriptions Medication Sig Dispense Refill ??? benzonatate (TESSALON) 200 MG capsule Take 1 capsule by mouth 3 times daily as needed for Cough30 capsule 0 ??? methylPREDNISolone (MEDROL DOSEPAK) 4 MG tablet Take by mouth as directed Use dose pack of 4mg tabs, start 24 mg/day, taper by 4mg/day over 6 days per pkg instructions. Take with food. 1 Each 0 ??? ibuprofen (MOTRIN) 200 MG tablet Take by mouth every 6 hours as needed for Pain. No current facility-administered medications for this visit. No Known Allergies Social History Social History ??? Marital status: Spouse name: N/A ??? Number of children: N/A ??? Years of education: N/A Occupational History ??? Not on file. Social History Main Topics ??? Smoking status: Never Smoker ??? Smokeless tobacco: Current User Types: Chew ??? Alcohol use Not on file ??? Drug use: No ??? Sexual activity: Not on file Other Topics Concern ??? Not on file Social History Narrative Review of Systems Pertinent items are noted in HPI Constitutional: Negative Eyes: Negative Ears, nose, mouth, and throat: some nasal congestion and nasal drainage, sore throat (sore throat improving) Respiratory: Positive for acute cough, yellow/green sputum production Cardiovascular: Negative Gastrointestinal: Negative Musculoskeletal:Negative Neurological: Negative Objective: BP 120/86 (BP SITE: LEFT ARM, BP POSITION: SITTING, BP CUFF SIZE: Large Adult) Pulse 58 Temp 98.5 ??F (Oral) Resp 16 Ht 1.753 m (5' 9 ) Wt 113.4 kg (250 lb) SpO2 97% BMI 36.92 kg/m2 Exam General appearance: alert, cooperative, no distress, oriented to person, place, and time, wellappearing Head: normocephalic, without trauma Eyes: sclera and conjunctiva clear, EOMI and PERRLA, lids normal Ears: canals clear, tympanic membranes normal, hearing intact to voice Nose: nares open; no septal deviation is noted, no maxillary tenderness, no frontal tenderness, mild nasal mucosal erythema and mild edema Throat: no mucous membrane abnormalities, lips, mucosa, and tongue normal; teeth and gums normal Neck: range of motion is intact, no masses, no cervical adenopathy Lungs: breath sounds normal and symmetric; no rales or wheezes, cough noted Heart: regular rhythm, normal S1 and S2, without murmurs, gallops or rubs Neurologic: mental status normal; alert and oriented X 3; Assessment: Encounter Diagnosis Name Primary? Acute nasopharyngitis (common cold) Yes Plan: Discussed dx and tx of URIs Discussed the importance of avoiding unnecessary abx therapy. Suggested symptomatic OTC remedies. RTC prn. Drink plenty of fluids and get plenty of rest You can take an over the counter decongestant and/or antihistamine daily (per package directions) such as Zyrtec-D You can take Tylenol or ibuprofen as needed for fever or pain (per package directions) If you begin to run a fever or if symptoms worsen, such as difficulty breathing or shortness of breath, general feeling worse, seek medial attention as soon as possible. Honey can be used to help with cough. The honey (2.5 to 5 ml [0.5 to 1 teaspoon]) can be given straight or diluted in liquid (eg, tea, juice) Humidifier may be helpful especially at night Orders Placed This Encounter ??? DISCONTD: methylPREDNISolone (MEDROL DOSEPAK) 4 MG tablet Sig: Take by mouth as directed Dispense: 1 Each Refill: 0 ??? benzonatate (TESSALON) 200 MG capsule Sig: Take 1 capsule by mouth 3 times daily as needed for Cough Dispense: 30 capsule Refill: 0 ??? methylPREDNISolone (MEDROL DOSEPAK) 4 MG tablet Sig: Take by mouth as directed Use dose pack of 4mg tabs, start 24 mg/day, taper by 4mg/day over 6 days per pkg instructions. Take with food. Dispense: 1 Each Refill: 0 No results found for this or any previous visit (from the past 24 hour(s)). CTIOUS DISEASE PHYSICIAN documented in this encounter Plan of Treatment Not on file documented as of this encounter Visit Diagnoses Diagnosis Acute nasopharyngitis (common cold)- Primary documented in this encounter Care Teams Neighborhood Worker Relationship Specialty Start Date End Date Saurabh Marquis MD [address] [place] [address] PCP - General Internal Medicine 06/05/14 documented as of this encounter
--- OUTSIDE RECORDS SUMMARY | 2024-02-27 20:31 | XMS_ITS | Encounter Summary ---
Author Organization [facility] Address [address] [place] [address] Care Team Providers Care Spooling Operator Name Role Phone Saurabh Marquis MD Primary Care Provider [phone] Encounter Details Date Type Department Care Team (Latest Contact Info) Description 04/24/2014 Hospital Outpatient Visit [facility] - Orthopedics [address] [facility] [place] [address] Miah Dumont MD [address] [place] [address] Discharge Disposition: Home or Self Care Social [...] on filedocumented in this encounter Care Teams Spooling Operator Relationship Specialty Start Date End Date Saurabh Marquis MD [address] [place] [address] PCP - General Internal Medicine 06/05/14 documented as of this encounter
--- OUTSIDE RECORDS SUMMARY | 2024-02-27 20:31 | XMS_ITS | Encounter Summary ---
Author Organization [facility] Address [address] [facility] [place] [address] Care Team Providers Care Community Action Worker Name Role Phone Saurabh Marquis MD Primary Care Provider [phone] Encounter Details Date Type Department Care Team (Latest Contact Info) Description 04/10/2014 Hospital Outpatient Visit [facility] - Orthopedics [address] [facility] [place] [address] Miah Dumont MD [address] [place] [address] Discharge Disposition: Home or Self Care Social [...] Procedure Name Priority Date/Time Associated Diagnosis Comments XR FINGERS RIGHT 2VW OR MORE Routine 04/10/2014 9:30 AM FABRIC WORKER FOREMAN documented in this encounter Results * XR FINGERS RIGHT 2VW OR MORE (04/10/2014 9:30 AM FABRIC WORKER FOREMAN) Anatomical Region Laterality Modality Upper Extremity, Wrist / Hand Ot her Impressions 04/10/2014 12:15 PM FABRIC WORKER FOREMAN IMPRESSION: Fracture of the distal first phalanx in anatomic alignment. Dictated by Mana Gregory MD This report was approved ??by Mana Gregory M.D. ?? on 04/10/2014 11:[address] FRANCISCO Valentine MD have personally reviewed and interpreted this examination/study. This report was electronically signed by FRANCISCO RESTREPO MD ??on 04/10/2014 12:15 PM . Narrative 04/10/2014 12:15 PM FABRIC WORKER FOREMAN EXAMINATION: XR FINGER RIGHT 2+ VW DATE: [...] Gregory M.D. on 04/10/2014 11:[address] FRANCISCO Valentine MD have personally reviewed and interpreted thisexamination/study. This report was electronically signed by FRANCISCO RESTREPO MD on 04/10/201412:15 PM . Miah Dumont MD DIAGNOSTIC IMAGING O RDERABLES documented in this encounter Visit Diagnoses Diagnosis Crushing injury of finger Crushing injury of finger(s) documented in this encounter Care Teams Community Action Worker Relationship Specialty Start Date End Date Saurabh Marquis MD [address] [place] [address] PCP - General Internal Medicine 06/05/14 documented as of this encounter
--- OUTSIDE RECORDS SUMMARY | 2024-02-27 20:31 | XMS_ITS | Encounter Summary ---
Author Organization [facility] Address [address] [place] [address] Care Team Providers Care Custodian Supervisor Name Role Phone Saurabh Marquis MD Primary Care Provider [phone] Reason for Visit * Auth/Cert - Closed Specialty Diagnoses / Procedures Referred By Contac t Referred To Contact Procedures DEBRIDEMENT AND IRRIGATION WOUND GRAFT SKIN FULL THICKNESS Referral ID Status Reason Start Date Expiration Date Visits Re quested Visits Authorized [id number] Closed 1 1 Encounter Details Date Type Department Care Team (Late st Contact Info) Description 06/09/2014 9:39 AM CDT Anesthesia Event [facility] [address] [place], [place] [id number] Joshua Marcos MD [address] [facility] [place] [address] Kenny Gonzalez MD [address] [place] [address] Anesthesia Record Procedure Summary Procedure Name Responsible Anesthesiologist Anesthesia Start Time Anesthesia Stop Time THUMB DEBRIDEMENT AND (Right: Hand) Joshua Marcos MD 06/09/14 0939 06/09/14 1107 Events Date Time Event Comment 06/09/2014 0751 0920 Quick Note In SDS, ready 0939 An Start 0939 An Start Data 0939 PT Reassessment Patient and Vital Signs reassessed prior to induction. 0949 An Induction 0950 LMA 1006 An Tourn Inflated Right uppe r arm to 250 mmHg 1054 An Tourn Deflated 1054: TQT deflated, 48 minutes total time 1059 AN LMA REMOVE 1100 an stop data 1100 Elect Sign The providers l isted as staff are the responsible providers for the case. 1101 ANPTO2 1107 An Stop 1107: Pt dozing in PACU, VSS, report to RN. Meds Name Total midazolam (VERSED) 1 mg/mL injection 2 m g fentaNYL (SUBLIMAZE) injection 50 mcg lidocaine (XYLOCAINE) 2% injection 50 mg propofol (DIPRIVAN) injection 200 mg ondansetron (ZOFRAN) 2 mg/ml injection 4 mg ketorolac (TORADOL) 30 mg/ml injection 3 0 mg ceFAZolin (ANCEF) IVPB 2 g 2 g dexamethasone (DECADRON) 4 mg/ml injecti on 4 mg lactated ringers infusion 800 mL * Agents Name Insp. N2O Exp. Sevoflurane O2 Insp. Sevoflurane N2O * Blood No blood administrations on file. Lines, Drains, and Airways Type Details Placement Removal Peripheral IV Date: 06/09/14; Time : 718; Orientation: Left, Inner; Placed By: Nini RUSSELL RN; Tolerance: Well 06/09/14 0719 by Deena Penaloza RN 06/09/14 1334 by Deena Penaloza RN LMA 06/09/14; 0950; maria de jesus ang; Standard IV; easy mask; LMA; 5.0; Bilateral breath sounds, Chest Auscultation, CO2 Monitor; 06/09/14; 1059; URMILA Heller 06/09/14 0950 by Christofer Haas APRN-URMILA 06/09/14 1059 by Yolanda Heller APRN-ADVERTISING CONSULTANT RETIRED Procedural Site 06/09/14; 1007; Right; Hand (thumb); 06/09/14; 195206/09/14 1007 by Carole Arroyo RN 06/09/141952 by Generic, Auto Release RETIRED Procedural Site 06/09/14; 1019; Right, Inner; Arm (forearm- skin graft site); 06/09/14; 195206/09/14 1019 by Carole Arroyo RN 06/09/141952 by Generic, Auto Release documented in this encounter Social History Tobacco Use Types Packs/Day Years Used Date Smoking Tobacco: Never Smokeless Tobacco: Current Chew Sex and Gender Information Value Date Recorded Sex Assigned at Not on file Gender Identity Not on file Sexual Orientation Not on file documented as of this encounter Progress Notes * Joshua Marcos MD - 06/09/2014 1:39 PM CDT ANESTHESIA POSTPROCEDURE EVALUATION Aramis Escamilla is a 28 y.o. male Temp: 36.5 ??C Pulse: 52 Resp: 16 BP: 128/80 mmHg SpO2: 99 % Pain Rating Score #1: 0 Anesthesia Type: general Mental status: sufficiently recovered from acute administration of anesthesia to participate in theevaluation and neurologic status has returned to preoperative level. Level of consciousness: awake No numbness, tingling or visual disturbances present. General appearance: well-appearing Respiratory function: natural airway. Cardiac: stable Pain: comfortable/acceptable PONV: None Postop hydration: adequate. Patient may be released from anesthesia care. A postop evaluation was performed on this patient with the following assessment: no apparent anesthesia complications documented in this encounter Consult Notes * Leigh Ann Arellano APRN-ADVERTISING CONSULTANT - 06/09/2014 7:50 AM CDT Pre-anesthesia Evaluation Procedure(s) (LRB): THUMB DEBRIDEMENT AND (Right) GRAFT SKIN FULL THICKNESS FROM FOREARM (Right) Vital Signs: Temp: 36.7 ??C (06/09 708) Pulse: 57 (06/09 708) Resp: 16 (06/09 708) BP: 131/99 mmHg (06/09 708) SpO2: 98 % (06/09 708) BMI: Estimated body mass index is 34.69 kg/(m^2) as calculated from the following: Height as of this encounter: 5' 9.02 (1.753 m). Weight as of this encounter: 235 lb (106.595 kg). History: Past Medical History Diagnosis Date ??? Concussion 1996 Past Surgical History Procedure Laterality Date ??? Hammond tooth extraction reports that he has never smoked. His smokeless tobacco use includes Chew. He reports that he does not use illicit drugs. Allergies: has No Known Allergies. Medications: Prescriptions prior to admission Medication Sig Dispense Refill ??? ibuprofen (MOTRIN) 200 MG tablet Take by mouth every 6 hours as needed for Pain. No current facility-administered medications on file prior to encounter. No current outpatient prescriptions on file prior to encounter. Physical Exam: NPO status: no liquids within 2 hours, no solids since midnight Oriented to person, place and time Airway: I Neck ROM: full Dental exam findings: chipped (Chipped front tooth) Pulmonary exam: breath sounds CTA Heart sounds: S1 S2 Negative for anesthesia complications Patient history unchanged. Plan for Anesthesia: ASA Score: 2. ASA Comments: Chewing tobacco Anesthesia plan: general / LMA and MAC Planned method of induction: intravenous Planned postop destination: PACU Anesthesia plan, risks and benefits discussed with patient Anesthesia consent: obtained Plan accepted yes Discussed anesthesia plan with: anesthesiologist and ADVERTISING CONSULTANT. documented in this encounter Plan of Treatment Not on file documented as of this encounter Visit Diagnoses Not on filedocumented in this encounter Administered Medications Inactive Administered Medications - up to 3 most recent administrations Medication Order MAR Action Action Date Dose Rate Site ceFAZolin (ANCEF) IVPB 2 g 2 g, at 100 mL/hr, Intravenous, PRE-OP MULTIPLE, Starting on Mon06/09/14 at 0652, Until Mon06/09/14 at 1454, Administer 30 minutes prior to surgical incision. May repeat dose in 3 hours if surgical incision is not yet closed., Pre-op $ Given 06/09/2014 9:38 AM CDT 2 g dexamethasone (DECADRON) injection PRN, Nausea/Vomiting, Starting on Mon06/09/14 at 1000, Until Mon06/09/14 at 1107, Anesthesia Intra-op $ Given 06/09/2014 10:00 AM CDT 4 mg fentaNYL (SUBLIMAZE) injection PRN, Starting on Mon06/09/14 at 0938, Until Mon06/09/14 at 1107, Anesthesia Intra-op $ Given 06/09/2014 9:38 AM CDT 50 mcg ketorolac (TORADOL) injection PRN, Starting on Mon06/09/14 at 1045, Until Mon06/09/14 at 1107, Anesthesia Intra-op $ Given 06/09/2014 10:45 AM CDT 30 mg lidocaine (XYLOCAINE) 2 % injection PRN, Starting on Mon06/09/14 at 0949, Until Mon06/09/14 at 1107, Anesthesia Intra-op $ Given 06/09/2014 9:49 AM CDT 50 mg midazolam (VERSED) injection PRN, Starting on Mon06/09/14 at 0938, Until Mon06/09/14 at 1107, Anesthesia Intra-op $ Given 06/09/2014 9:38 AM CDT 2 mg ondansetron (ZOFRAN) injection PRN, Nausea/Vomiting, Starting on Mon06/09/14 at 1045, Until Mon06/09/14 at 1107, Anesthesia Intra-op $ Given 06/09/2014 10:45 AM CDT 4 mg propofol (DIPRIVAN) injection PRN, Starting on Mon06/09/14 at 0949, Until Mon06/09/14 at 1107, Anesthesia Intra-op $ Given 06/09/2014 9:49 AM CDT 200 mg documented in this encounter Care Teams Custodian Supervisor Relationship Specialty Start Date End Date Saurabh Marquis MD [address] [place] [phone] PCP - General Internal Medicine 06/05/14 documented as of this encounter
--- OUTSIDE RECORDS SUMMARY | 2024-02-27 20:31 | XMS_ITS | Encounter Summary ---
Author Organization [facility] Address [address] [place] [address] Care Team Providers Care Senior Software Analyst Name Role Phone Saurabh Marquis MD Primary Care Provider [phone] Encounter Details Date Type Department Care Team (Latest Contact Info) Description 06/19/2014 Hospital Outpatient Visit [facility] - Orthopedics [address] [facility] [place] [address] Miah Dumont MD [address] [place] [address] Discharge Disposition: Home or Self Care Social [...] on filedocumented in this encounter Care Teams Senior Software Analyst Relationship Specialty Start Date End Date Saurabh Marquis MD [address] [place] [phone] PCP - General Internal Medicine 06/05/14 documented as of this encounter
--- OUTSIDE RECORDS SUMMARY | 2024-02-27 20:31 | XMS_ITS | Encounter Summary ---
Author Organization [facility] Address [address] [facility] [place] [address] Care Team Providers Care Anthropologist Physical Name Role Phone Saurabh Marquis MD Primary Care Provider [phone] Reason for Visit * Reason Onset Date Comments Follow-up 01/17/2017 Encounter Details Date Type Department Care Team (Late st Contact Info) Description 01/17/2017 Telephone [facility] [address] [phone] Danita Singh Follow-up Social History Tobacco Use Types Packs/Day Years [...] on filedocumented in this encounter Care Teams Anthropologist Physical Relationship Specialty Start Date End Date Saurabh Marquis MD [address] [place] [phone] PCP - General Internal Medicine 06/05/14 documented as of this encounter
--- OUTSIDE RECORDS SUMMARY | 2024-02-27 20:32 | XMS_ITS | Encounter Summary ---
Author Organization [facility] Address [address] [place] [address] Care Team Providers Care Microsystems Engineer Name Role Phone Farida Wolfe NP Primary Care Provider [phone] Reason for Referral * Neurology (Routine) - Closed Specialty Diagnoses / Procedures Referred By Lupe galvin Referred To Contact Diagnoses Pain of left hand Procedures EMG/NCV - Missy Tate MD [facility] [address] [place] [address] Phone: tel: fax: [address] [phone] Referral ID Status Reason Start Date Expiration Date Visits Re quested Visits Authorized [id number] Closed 06/22/2023 07/21/2024 1 1 * Diagnostic Imaging (Routine) - Authorized Specialty Diagnoses / Procedures Referred By Lupe galvin Referred To Contact Diagnoses Ganglion of wrist, unspecified laterality Procedures US Upper Extremity Left Missy Tate MD [address] [place] [address] [address] [place] [address] Phone: tel: fax: [address] [phone] Referral ID Status Reason Start Date Expiration Date V isits Requested Visits Authorized [id number] Authorized 06/22/2023 07/21/2024 1 1 * Diagnostic Imaging (Routine) - Closed Specialty Diagnoses / Procedures Referred By Lupe galvin Referred To Contact Diagnoses Pain of left hand Procedures XR Hand Left 3 or More Views Missy Tate MD [address] [place] [address] [address] [place] [address] Phone: tel: fax: [address] [phone] Referral ID Status Reason Start Date Expiration Date Visits Re quested Visits Authorized [id number] Closed 06/20/2023 07/19/2024 1 1 Reason for Visit * Reason Comments Mass Pain * Consultation (Routine) - Closed Specialty Diagnoses / Procedures Referred By Lupe galvin Referred To Contact Orthopedic Surgery Diagnoses Ganglion of wrist, unspecified laterality Farida Wolfe, SUPERVISOR DENTURE DEPARTMENT [address] [address] Phone: tel: fax: Ilan Lim MD [address] [place] [address] [address] [place] [address] Phone: tel: fax: Referral ID Status Reason Start Date Expiration Date V isits Requested Visits Authorized [id number] Closed Specialty Services Required 05/19/2023 06/17/2024 1 1 Encounter Details Date Type Department Care Team (Late st Contact Info) Description 06/22/2023 8:45 AM CDT Office Visit [facility] Hand Surgery [address] [place] [address] [address] [place] [address] Missy Tate MD [address] [place] [address] [address] [place] [phone] Pain of left hand (Primary Dx); Ganglion of wrist, unspecified laterality Social History Tobacco Use Types Packs/Day Years Used Date Smoking Tobacco: Never Assessed Sex and Gender Information Value Date Recorded Sex Assigned at Not on file Legal Sex Male 11:06 AM CDT Gender Identity Male 05/19/2023 11:07 AM CDT Sexual Orientation Not on file documented as of this encounter Progress Notes * Missy Tate MD - 06/22/2023 8:45 AM CDT Images from the original note were not included. CONSULT VISIT Subjective CHIEF COMPLAINT Aramis Escamilla was seen today for consultation requested by Farida Wolfe NP for Mass and Pain of the Left Hand HISTORY OF PRESENT ILLNESS The patient is a 37-year-old left-hand dominant male who presents today for evaluation of 2 separate issues. The 1st is a left volar wrist mass. He states this has been present for the past 3-4 months but has progressively worsened over time. He states that it gets larger and smaller depending on use. He describes aching dull moderate pain which is worse with working with his hands and better with nothing. The 2nd issue is left hand pain numbness and tingling. He states this has the thumb indexand middle fingers. He believes that this has been present for the past 5-6 years but again worsened over time. This does wake him from sleep. His pain is activity related unpredictable. He is tried icing anti-inflammatory medications massage which failed to relieve his symptoms. He has not tried bracing corticosteroid injections for this problem. He has not undergone EMG or nerve conduction study. He denies paresthesias in his right upper extremity. He denies any other lumps bumps fevers chills or unexplained weight loss. He has no history of diabetes or hypothyroidism. PAST MEDICAL HISTORY He has no past medical history on file. PAST SURGICAL HISTORY He has no past surgical history on file. MEDICATIONS He currently has no medications in their medication list. ALLERGIES He has no known allergies. 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 FAMILY HISTORY His family history is not on file. REVIEW OF SYSTEMS Constitutional: Negative for fever and chills. HENT: Negative for neck pain. Eyes: Negative for change in vision. Respiratory: Negative for cough and shortness of breath. Cardiovascular: Negative for chest pain or pressure. PHYSICAL EXAM There were no vitals taken for this visit. General: Well appearing in no acute distress Chest: Normal work of breathing HEENT: Normocephalic, atraumatic Neuro: alert and oriented to person, place and time Focused exam of the upper extremities. Hands are symmetric in appearance. There is 5/5 apb strengthon the right and 5/5 apb strength on the left and 5/5 abduction strength bilaterally. There is a Negative Froment's and Negative Wartenberg signs bilaterally. There is no evidence of interossei atrophy. There is no thenar atrophy bilaterally. Radial pulses are 2+ and equal bilaterally. The fingers are warm and well perfused. The patient is able to make a full fist and touch the fingertips down tothe palm. Sensation is intact to light touch along the radial and ulnar nerve distributions. The patient has decreased sensation to light touch in the median nerve distribution. The patient has a Positive Tinel's and a Positive Durkan sign at the wrist bilaterally. The patient has a Negative Tinel's and elbow compression test bilaterally. There is no ulnar nerve subluxation with range of motion of the elbow. Additionally at the volar radial aspect of the left wrist there is a mass measuring appr oximately 0.5 cm. It has a negative Tinel's and is nonpulsatile. REVIEW OF X-RAYS/STUDIES/LABS X-rays of the left hand dated today were reviewed by me and it is my interpretation there are no fractures, dislocations or malalignment. Ulnar positive variance is present. There is mild basal thumb, 2nd metacarpophalangeal and ring finger distal interphalangeal joint osteoarthritis. There is no dorsal wrist soft tissue swelling. Small soft tissue prominence is present at the radial styloid. PLAN This is a 37-year-old [id number] male who presents today with left carpal tunnel syndrome as well as a left volar wrist ganglion. I reviewed with the patient the relevant anatomy in the diagnosis. I have ordered him an ultrasoundin order to confirm that this volar mass is in fact fluid filled and likely a ganglion cyst. We have also given him a left cock-up wrist splint to wear and ordered him a left upper extremity EMG and nerve conduction study. He will return to see me following the test to discuss the results. Missy Tate MD documented in this encounter Plan of Treatment Scheduled Orders Name Type Priority Associated Diagnoses Orde r Schedule US Upper Extremity Left Imaging Schedule Routine, Read Routine (OP Routine) Ganglion of wrist, unspecified laterality Ordered: 06/22/2023 EMG/NCV - Neurology Routine Pain of left hand 1 Occurrences starting 06/22/2023 until 06/21/2024 documented as of this encounter Results * XR Hand Left 3 or More Views (06/22/2023 8:51 AM CDT) Anatomical Region Laterality Modality Upper Extremities, Hand Left Computed Radiography 06/23/2023 7:33 AM CDT Narrative 06/23/2023 7:35 AM CDT EXAM DESCRIPTION: XR HAND LEFT 3 OR MORE VIEWS REASON FOR STUDY: hand pain ?? General hand numbness and tingling for 4 years, anterior wrist lump for 3 months, no injury ? FINDINGS: Three views submitted without comparison. No acute fractures are identified. ??Ulnar positive variance is present. ??There is mild basal thumb, 2nd metacarpophalangeal and ring finger distal interphalangeal joint osteoarthritis. ?? There is no dorsal wrist soft tissue swelling. ??Small soft tissue prominence is present at the radial styloid. IMPRESSION: Indeterminate small soft tissue prominence at the radial styloid. ??This can be further evaluated with ultrasound or MRI. ?? Mild left basal thumb, 2nd metacarpophalangeal and ring finger distal interphalangeal joint osteoarthritis. THIS IS AN ELECTRONICALLY VERIFIED FINAL REPORT 06/23/2023 7:35 AM - Electronically signed by ??Kenny Molina M.D. D: ??06/23/2023 7:35 AM T: Report ID: [id number] Reading Location: ??[id number] Procedure Note Kenny Molina MD - 06/23/2023 EXAM DESCRIPTION: XR HAND LEFT 3 OR MORE VIEWS REASON FOR STUDY: hand pain General hand numbness and tingling for 4 years, anterior wrist lump for 3 months, no injury FINDINGS: Three views submitted without comparison. No acute fractures are identified. Ulnar positive variance is present.There is mild basal thumb, 2nd metacarpophalangeal and ring finger distal interphalangeal joint osteoarthritis. There is no dorsal wrist softtissue swelling. Small soft tissue prominence is present at the radial styloid. IMPRESSION: Indeterminate small soft tissue prominence at the radial styloid. Thiscan be further evaluated with ultrasound or MRI. Mild left basal thumb, 2nd metacarpophalangeal and ring finger distal interphalangeal joint osteoarthritis. THIS IS AN ELECTRONICALLY VERIFIED FINAL REPORT 06/23/2023 7:35 AM - Electronically signed by Kenny Molina M.D. T: Report ID: [id number] Reading Location: [id number] us Missy Tate MD IMG XR PROCEDURES Final R esult documented in this encounter Visit Diagnoses Diagnosis Pain of left hand- Primary Ganglion of wrist, unspecified laterality Pain of left hand documented in this encounter Orders Outpatient Referral Count Last Ordered Date Fir st Ordered Date AMB REFERRAL TO ORTHOPEDIC SURGERY 1 2023 documented in this encounter Care Teams Microsystems Engineer Relationship Specialty Start Date End Date Farida Wolfe NP [address] [place] [address] PCP - General Nurse Practitioner 05/19/23 documented as of this encounter
--- OUTSIDE RECORDS SUMMARY | 2024-02-27 20:32 | XMS_ITS | Encounter Summary ---
Author Organization [facility] Address [address] [place] [address] Care Team Providers Care Vp Securities Name Role Phone Farida Wolfe NP Primary Care Provider [phone] Reason for Visit * Neurology (Routine) - Closed Specialty Diagnoses / Procedures Referred By Lupe t Referred To Contact Diagnoses Pain of left hand Procedures EMG/NCV - Missy Tate MD [address] [place] [address] Phone: tel: fax: [address] [phone] Referral ID Status Reason Start Date Expiration Date Visits Re quested Visits Authorized [id number] Closed 06/22/2023 07/21/2024 1 1 Encounter Details Date Type Department Care Team (Late st Contact Info) Description 02/16/2024 1:00 PM INSURANCE CLAIMS ASSISTANT Therapy [facility] OP Physical Therapy [address] [place] [phone] Pain of left hand Social History Tobacco Use Types Packs/Day Years Used Date Smoking Tobacco: Never Assessed Sex and Gender Information Value Date Recorded Sex Assigned at Not on file Legal Sex Male 11:06 AM CDT Gender Identity Male 05/19/2023 11:07 AM CDT Sexual Orientation Not on file documented as of this encounter Progress Notes * Ruben Bai MD - 02/16/2024 1:00 PM CST Scanned reports and notes from EMG/NCV test can be found in the Media section of the patient's chart. RANCE CLAIMS ASSISTANT documented in this encounter Plan of Treatment Not on file documented as of this encounter Visit Diagnoses Diagnosis Pain of left hand documented in this encounter Orders Imaging Orders Without Results Count Last Order ed Date First Ordered Date EMG/NCV 1 02/16/2024 documented in this encounter Care Teams Vp Securities Relationship Specialty Start Date End Date Farida Wolfe NP [address] [place] [address] PCP - General Nurse Practitioner 05/19/23 documented as of this encounter
--- OUTSIDE RECORDS SUMMARY | 2024-02-27 20:32 | XMS_ITS | Encounter Summary ---
Author Organization [facility] Address [address] [place] [address]. [place] [address] [place] [address] Care Team Providers Care Radiology Technician Name Role Phone Unavailable Primary Care Provider Unavailabl e Encounter Details Date Type Department Care Team (Late st Contact Info) Description 09/07/2009 Abstract [facility] CONVERSION [address] [place], [place] [id number] Saurabh Marquis MD [facility] [place], [place] [phone] Social History Tobacco Use Types Packs/Day Years Used Date Smoking Tobacco: Never Assessed Sex and Gender Information Value Date Recorded Sex Assigned at Not on file Legal Sex Male 6:16 PM CDT Gender Identity Not on file Sexual Orientation Not on file documented as of this encounter Plan of Treatment Not on file documented as of this encounter Visit Diagnoses Not on filedocumented in this encounter
--- OUTSIDE RECORDS SUMMARY | 2024-02-27 20:32 | XMS_ITS | Clinical Summary ---
Author Organization [facility] Address [address] [place] [address]. [place] [address] [place] [address] Care Team Providers Care Pretzel Twister Name Role Phone Unavailable Primary Care Provider Unavailabl e Social History Tobacco Use Types Packs/Day Years Used Date Smoking Tobacco: Never Assessed Sex and Gender Information Value Date Recorded Sex Assigned at Not on file Legal Sex Male 6:16 PM CDT Gender Identity Not on file Sexual Orientation Not on file Plan of Treatment Health Maintenance Due Date Last Done Comments Annual Physical 11/17/1986 Hepatitis C 11/17/2001 DTaP, Tdap and Td Vaccines ( 1 - Tdap) 11/17/2002 Hepatitis B Vaccines (1 of 3 - 19+ 3-dose series) 11/17/2002 COVID-19 Vaccine (2023-2 5 season) 2023 Influenza Adult (#1) 2023 HPV Vaccines Aged Out No longer eligi ble based on patient's age to complete this topic Meningococcal Vaccine Aged Out No ursula niall eligible based on patient's age to complete this topic Pneumococcal Vaccine: Pediat rics (0 to 5 Years) and At-Risk Patients (6 to 64 Years) Aged Out No longer eligible b ased on patient's age to complete this topic RSV Immunizations Under 20 Months Aged Out No longer eligible based on patient's age to complete this topic
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
--- OUTSIDE RECORDS SUMMARY | 2024-02-27 20:32 | XMS_ITS | Clinical Summary ---
Author Organization [facility] Address [address] [place] [phone] Care Team Providers Care Miscellaneous Machine Operator Name Role Phone Farida Wolfe NP Primary Care Provider Allergies No known active allergies Medications No known medications Active Problems No known active problems Encounters Date Type Department Care Team Description 02/27/2024 Telephone [facility] Medical Group Hand Surgery [address] [place] [address] [address] [place] [address] Kassidy Chan MA 02/16/2024 1:00 PM SCIENCE EDUCATION PROFESSOR Therapy [facility] OP Physical Therapy [address] [place] [address] [address] [place] [address] Pain of left hand from Last 3 Months Social History Tobacco Use Types Packs/Day Years Used Date Smoking Tobacco: Never Assessed Sex and Gender Information Value Date Recorded Sex Assigned at Not on file Legal Sex Male 11:06 AM CDT Gender Identity Male 05/19/2023 11:07 AM CDT Sexual Orientation Not on file Obstetrics History Plan of Treatment Health Maintenance Due Date Last Done Comments Depression Screening 1983 Hepatitis C Screening 1983 Varicella Vaccines (1 of 2 - 13+ 2-dose series) 11/17/1996 Hepatitis B Screening 11/17/2001 Regular Well Visit/Exam 18-64 11/17/2001 Covid-19 Vaccine (2023-2 5 season) 2023 10/14/2020, 09/23/2020 Influenza Vaccine (#1) 2023 DTaP/Tdap/Td Vaccine (2 - Td or Tdap) 04/01/2024 04/01/2014 HPV Vaccines Aged Out No longer eligi ble based on patient's age to complete this topic Pneumococcal vaccine <65 Aged Out No longer eligible based on patient's age to complete this topic Insurance [facility] Care Teams Miscellaneous Machine Operator Relationship Specialty Start Date End Date Farida Wolfe NP [address] [place] [phone] PCP - General Nurse Practitioner 05/19/23
--- OUTSIDE RECORDS SUMMARY | 2024-02-27 20:32 | XMS_ITS | Encounter Summary ---
Author Organization [facility] Address [address] [place] [address] Care Team Providers Care Pet Adoption Counselor Name Role Phone Farida Wolfe NP Primary Care Provider [phone] Reason for Visit * Reason Onset Date Comments ultrasound order 06/22/2023 Encounter Details Date Type Department Care Team (Late st Contact Info) Description 06/22/2023 Telephone [facility] Medical Group Hand Surgery [address] [facility] [address] [place] [address] Missy Tate MD [address] [place] [id number] ultrasound order Social History Tobacco Use Types Packs/Day Years Used Date Smoking Tobacco: Never Assessed Sex and Gender Information Value Date Recorded Sex Assigned at Not on file Legal Sex Male 11:06 AM CDT Gender Identity Male 05/19/2023 11:07 AM CDT Sexual Orientation Not on file documented as of this encounter Miscellaneous Notes * Telephone Encounter - Anna Mendoza MA - 06/22/2023 4:30 PM CDT Faxed US order to [facility] at patient's request. Faxed to: [phone] at 4:30 PM 06/22/2023. * Telephone Encounter - Alba Arzate - 06/22/2023 3:49 PM CDT Patient is wanting the order for the ultrasound sent to [facility]. He is going there tomorrow morning they have walk ins. [facility] isnt able to get him in until 07.02 documented in this encounter Plan of Treatment Not on file documented as of this encounter Visit Diagnoses Not on filedocumented in this encounter Care Teams Pet Adoption Counselor Relationship Specialty Start Date End Date Farida Wolfe NP [address] [place] [phone] PCP - General Nurse Practitioner 05/19/23 documented as of this encounter
--- OUTSIDE RECORDS SUMMARY | 2024-02-27 20:32 | XMS_ITS | Encounter Summary ---
Author Organization [facility] Address [address] [place] [address] Care Team Providers Care Winch Runner Name Role Phone Farida Wolfe NP Primary Care Provider [phone] Reason for Referral * Diagnostic Imaging (Routine) - Closed Specialty Diagnoses / Procedures Referred By Lupe galvin Referred To Contact Diagnoses Pain of left hand Procedures XR Hand Left 3 or More Views Missy Tate MD [address] [place] [address] [address] [place] [address] Phone: tel: fax: [address] [phone] Referral ID Status Reason Start Date Expiration Date Visits Re quested Visits Authorized [id number] Closed 06/20/2023 07/19/2024 1 1 Reason for Visit * Diagnostic Imaging (Routine) - Closed Specialty Diagnoses / Procedures Referred By Contac t Referred To Contact Diagnoses Pain of left hand Procedures XR Hand Left 3 or More Views Missy Tate MD [address] [place] [address] [address] [place] [phone] Phone: tel: fax: [address] [phone] Referral ID Status Reason Start Date Expiration Date Visits Re quested Visits Authorized [id number] Closed 06/20/2023 07/19/2024 1 1 Encounter Details Date Type Department Care Team (Latest Contact Info) Description 06/22/2023 8:42 AM CDT - 06/22/2023 11:59 PM CDT Hospital Encounter [facility] Di[facility] Imaging [address] [place] [address] Pain of left hand Discharge Disposition: Discharge to home or self care Social History Tobacco Use Types Packs/Day Years Used Date Smoking Tobacco: Never Assessed Sex and Gender Information Value Date Recorded Sex Assigned at Not on file Legal Sex Male 11:06 AM CDT Gender Identity Male 05/19/2023 11:07 AM CDT Sexual Orientation Not on file documented as of this encounter Discharge Disposition Disposition Code Departure Means Destination Discharge to home or self care documented in this encounter Plan of Treatment Not on file documented as of this encounter Procedures Procedure Name Priority Date/Time Associated Diagnosis Comments XR HAND LEFT 3 OR MORE VIEWS Schedule Routine, Read Routine (OP Routine) 06/22/2023 8:51 AM CDT Pain of left hand documented in this encounter Results * XR Hand Left [...] D: ??06/23/2023 7:35 AM T: Report ID: [id number] Reading Location: ??[id number] Procedure Note Kenny Molina MD - 06/23/2023 [...] by Kenny Molina M.D. T: Report ID: [id number] Reading Location: [id number] us Missy Tate MD IMG XR PROCEDURES Final R esult documented in this encounter Visit Diagnoses Diagnosis Pain of left hand documented in this encounter Care Teams Winch Runner Relationship Specialty Start Date End Date Farida Wolfe NP [address] [place] [phone] PCP - General Nurse Practitioner 05/19/23 documented as of this encounter
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
--- OUTSIDE RECORDS SUMMARY | 2024-02-27 20:32 | XMS_ITS | Referral Summary ---
Author Organization [facility] Address [facility] [place] [address] Care Team Providers Care Lift Electrician Name Role Phone Farida Wolfe NP Primary Care Provider Encounters Date Type Department Care Team Description 02/27/2024 Telephone [facility] Medical Group Hand Surgery [address] [place] [address] [address] [place] [address] Kassidy Chan MA 02/16/2024 1:00 PM CAREER GUIDANCE COUNSELOR Therapy [facility] OP Physical Therapy [address] [place] [address] [address] [place] [address] Pain of left hand from Last 3 Months Allergies No known active allergies Medications No known medications Active Problems No known active problems Social History Tobacco Use Types Packs/Day Years Used Date Smoking Tobacco: Never Assessed Sex and Gender Information Value Date Recorded Sex Assigned at Not on file Legal Sex Male 11:06 AM CDT Gender Identity Male 05/19/2023 11:07 AM CDT Sexual Orientation Not on file Plan of Treatment Not on file Insurance [facility] Care Teams Lift Electrician Relationship Specialty Start Date End Date Farida Wolfe NP [address] [place] [phone] PCP - General Nurse Practitioner 05/19/23
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
== END 2024-02-20 11:07 | disposition home or self-care (01) ==
PROVIDERS: Emergency Provider Nurse Practitioner Family; PCP Physician Assistant Medical
DX: J01.90 Acute sinusitis, unspecified (principal); B96.89 Other specified bacterial agents as the cause of diseases classified elsewhere; E03.9 Hypothyroidism, unspecified; I10 Essential (primary) hypertension
CPT/HCPCS: 87804; 99213; G0463